=== PATIENT | male | born 1985 | race Two or more races ===

== ENCOUNTER → 2020-08-22 | Emergency (ER) | payer BC, OTHER ==
[~2020-08-22] VITALS: Ht 182.9 cm; Wt 93.0 kg
[~2020-08-22] MED LIST: CEFEPIME 1 GM in IV D5W 50 ML IV ONE; DEXAMETHASONE SOD PHOSPHATE 4 MG/ML VIAL ONE; HYDROCODONE/APAP 10/325MG TABLET ONE; HYDROCODONE/APAP 10/325MG TABLET PO ONE; KETOROLAC TROMETHAMINE INJ 30 MG/ML VIAL IV ONE; KETOROLAC TROMETHAMINE INJ 30 MG/ML VIAL ONE; LIDOCAINE HCL/MPF 1% 30 ML VIAL IJ ONE; VANCOMYCIN 1 GM in IV D5W 250 ML IV ONE
--- NOTE | 2020-08-22 10:00 | NUR ---
Note jaiden in EDM - 08/22/20 at 1555 by [facility] [email or web address], from urgent care, c/o left shoulder pain 7/10 pain scale x 2 days. On room air, breathing evenly and unlabored. Connected to the monitor and pulse ox. kept comfortable, will continue to monitor accordingly.
--- NOTE | 2020-08-22 10:00 | NUR ---
patient bibra from urgent care c/o left shoulder pain x 2 days. On room air, breathing evenly and unlabored. Kept comfortable, will continue to monitor accordingly.
[2020-08-22 13:39] LABS: BASOPHILS % (AUTO) 0.1 % (0.0-2.0); EOSINOPHILS % (AUTO) 0.3 % (0.0-6.0); HEMATOCRIT 42 % (39-51); HEMOGLOBIN 14.1 g/dL (13.5-17.5); LYMPHOCYTES # (AUTO) 0.5 /CMM (0.8-4.8); MEAN CORPUSCULAR HGB CONC 34 g/dl (31.0-36.0); MEAN CORPUSCULAR VOLUME 94 fL (80-96); MONOCYTES # (AUTO) 0.5 /CMM (0.1-1.30); MONOCYTES % (AUTO) 4.4 % (2.0-12.0); NEUTROPHILS # (AUTO) 11.1 /CMM (1.8-8.9); NEUTROPHILS % (AUTO) 91.2 % (43.0-81.0); PLATELET COUNT (AUTO) 210 /CMM (150-450); RED BLOOD CELL COUNT(AUTO) 4.47 MIL/uL (4.5-6.0); WHITE BLOOD COUNT (AUTO) 12.2 K/uL (4.3-11.0)
[2020-08-22 15:49] LABS: CALCIUM, SERUM 8.8 mg/dL (8.5-10.1); CARBON DIOXIDE 23 mmol/L (21-32); CHLORIDE 100 mmol/L (98-107); CREATININE 0.9 mg/dL (0.6-1.3); GLUCOSE 117 mg/dL (74-106); POTASSIUM 3.6 mmol/L (3.5-5.1); SODIUM SERUM 135 mmol/L (136-145); UREA NITROGEN, BLOOD 13 mg/dL (7-18)
[2020-08-22 15:53] VITALS: BP 129/81
== END | disposition home or self-care (01) ==
LOC: ER 09:56
DX: M75.52 Bursitis of left shoulder (principal); R50.9 Fever, unspecified; Z20.828 Contact with and (suspected) exposure to other viral communicable diseases; R00.0 Tachycardia, unspecified
CPT/HCPCS: 36415; 72040; 73030; 80048; 83605; 84484; 85025; 85652; 86140; 87040; 87426; 93005; 96365; 96367; 96375; 99285; C9803; J0692; J1100; J1885; J3370; J3490; J7060